=== PATIENT | male | born 1960 | race Caucasian/White ===

== ENCOUNTER 2021-01-31 12:25 | Emergency (ER) | payer BC ==
[~2021-01-31] VITALS: Ht 170.2 cm; Wt 78.0 kg
[~2021-01-31 12:25] MED LIST: ENAL20TA75 PO; FLUT16SP2 BOTHNARES; GABA-532 PO; HYDR-3686 PO; HYDR12.55 PO; LOVA20TA2 PO; METO-411 PO
[2021-01-31] MEDS ORDERED: ondansetron/PF 4mg/2ml inj IV ONE (16:30)
[2021-01-31 17:54] LABS: BASOPHILS % (AUTO) 0.2 % (0-1); EOSINOPHILS # (AUTO) 0.1 X10'3 (0-0.9); EOSINOPHILS % (AUTO) 0.6 % (0-6); HEMATOCRIT 46.1 % (42.0-52.0); HEMOGLOBIN 15.2 g/dl (14.0-17.9); LYMPHOCYTES # (AUTO) 1.4 X10'3 (1.1-4.8); LYMPHOCYTES % (AUTO) 10.6 % (21-51); MEAN CORPUSCULAR HEMOGLOBIN 30.1 PG (27.0-31.0); MEAN CORPUSCULAR HGB CONC 33.1 g/dL (33.0-36.5); MEAN PLATELET VOLUME 8.4 FL (7.4-10.4); MONOCYTES # (AUTO) 1.1 X10'3 (0-0.9); MONOCYTES % (AUTO) 7.9 % (2-12); NEUTROPHILS # (AUTO) 10.9 X10'3 (1.8-7.7); NEUTROPHILS % (AUTO) 80.7 % (42-75); PLATELET COUNT 239 X10'3 (140-440); RED BLOOD COUNT 5.07 X10'6 (4.70-6.10); RED CELL DISTRIBUTION WIDTH 15.8 % (11.5-14.5); WHITE BLOOD COUNT 13.5 X10'3 (4.5-11.0)
[2021-01-31 18:05] LABS: ALBUMIN 4.8 G/DL (3.4-5.0); ANION GAP 12 (8-16); BLOOD UREA NITROGEN 18 MG/DL (7-18); BUN/CREATININE RATIO 17.5 (5.4-32.0); CALCIUM 9.2 MG/DL (8.5-10.1); CHLORIDE 107 MMOL/L (99-107); CREATININE 1.03 MG/DL (0.60-1.10); GLUCOSE 104 MG/DL (70-104); POTASSIUM 3.9 MMOL/L (3.5-5.1); SODIUM 144 MMOL/L (135-145); TOTAL CARBON DIOXIDE 25.2 MMOL/L (24-32); eGFR 74 ML/MIN
[2021-01-31 18:06] LABS: PARTIAL THROMBOPLASTIN TIME 27 SECONDS (22-32)
--- NOTE | 2021-01-31 18:49 | NUR ---
Patient states throat still feels sore but has been able to keep down a few drinks of water. Patient encouraged to call if he starts to throw up again.
[2021-01-31 20:37] VITALS: BP 130/83
== END 2021-01-31 20:38 | disposition home or self-care (01) ==
LOC: ER 12:25
DX: K22.2 Esophageal obstruction (principal); I10 Essential (primary) hypertension; J45.909 Unspecified asthma, uncomplicated; Z86.19 Personal history of other infectious and parasitic diseases; Z79.899 Other long term (current) drug therapy
CPT/HCPCS: 36415; 71045; 80048; 85025; 85610; 85730; 96374; 99284; J2405

== ENCOUNTER 2022-01-18 05:22 | Inpatient (IN) | payer BC ==
[2022-01-16 13:55] LABS: BASOPHILS % (AUTO) 0.7 % (0-1); EOSINOPHILS # (AUTO) 0.2 X10'3 (0-0.9); EOSINOPHILS % (AUTO) 2.8 % (0-6); LYMPHOCYTES # (AUTO) 1.6 X10'3 (1.1-4.8); LYMPHOCYTES % (AUTO) 23.6 % (21-51); MEAN CORPUSCULAR HEMOGLOBIN 29.5 PG (27.0-31.0); MEAN CORPUSCULAR HGB CONC 33.8 g/dL (33.0-36.5); MEAN CORPUSCULAR VOLUME 87.1 FL (78-98); MEAN PLATELET VOLUME 8.3 FL (7.4-10.4); MONOCYTES # (AUTO) 0.5 X10'3 (0-0.9); MONOCYTES % (AUTO) 7.6 % (2-12); NEUTROPHILS # (AUTO) 4.5 X10'3 (1.8-7.7); NEUTROPHILS % (AUTO) 65.3 % (42-75); PRE OP HEMATOCRIT 39.3 % (42.0-52.0); PRE OP HEMOGLOBIN 13.3 g/dL (14.0-17.9); PRE OP PLATELET COUNT 229 X10'3 (140-440); RED BLOOD COUNT 4.51 X10'6 (4.70-6.10)
[2022-01-16 14:00] LABS: HEMOGLOBIN A1C 6.4 % (4.5-6.2)
[2022-01-16 14:04] LABS: PRE OP PROTIME 10.3 SECONDS (9.0-12.0)
[2022-01-16 14:05] LABS: ALBUMIN 4.1 G/DL (3.4-5.0); ALKALINE PHOSPHATASE 79 IU/L (46-116); BLOOD UREA NITROGEN 16 MG/DL (7-18); BUN/CREATININE RATIO 14.7 (5.4-32.0); CALCIUM 8.8 MG/DL (8.5-10.1); CHLORIDE 103 MMOL/L (99-107); CREATININE 1.09 MG/DL (0.60-1.10); PRE OP ALT 53 U/L (30-65); PRE OP ANION GAP 8 (8-16); PRE OP AST 26 U/L (10-37); PRE OP GLUCOSE 101 MG/DL (70-104); PRE OP POTASSIUM 4.1 MMOL/L (3.4-5.1); PRE OP SODIUM 140 MMOL/L (135-145); TOTAL CARBON DIOXIDE 29.3 MMOL/L (24-32); TOTAL PROTEIN 8.2 G/DL (6.4-8.2); eGFR 69 ML/MIN
[2022-01-16 14:06] LABS: CLARITY,URINE CLEAR (Clear); COLOR,URINE YELLOW (Yellow); GLUCOSE, URINE NEGATIVE (Neg); KETONES,URINE NEGATIVE (Neg); LEUKOCYTE ESTERASE ,URINE NEGATIVE (Neg); NITRITES, URINE NEGATIVE (Neg); OCCULT BLOOD,URINE NEGATIVE (Neg); PH,URINE 5.5 (4.8-8.0); PROTEIN,URINE NEGATIVE (Neg); UROBILINOGEN,URINE 0.2 E.U/dL (0.2-1.0)
[2022-01-16 14:10] LABS: PRE OP BILIRUB, TOTAL 0.4 MG/DL (0.0-1.0)
[2022-01-16 14:17] LABS: UA COLLECTION TYPE VOIDED
[2022-01-16 15:07] LABS: ABG BASE EXCESS 0.5 mmol/L (-2.0-2.0); ABG HCO3 25.6 mmol/L (22.0-26.0); ABG OXYGEN SATURATION 96.2 % (94-97); ABG PCO2 (T) 42.9 mmHg (35.0-48.0); ABG PO2 (T) 82.4 mmHg (75.0-100.0); ALLEN'S TEST POSITIVE; FCOHb 0.3 % (0.0-3.9); FMetHb 0.3 % (0.0-1.5); FO2Hb 95.6 % (94-97); TOTAL HEMOGLOBIN 13.7 G/dl (14.0-18.0)
[~2022-01-18] VITALS: Ht 165.1 cm; Wt 74.1 kg
[2022-01-18] VITALS (23 sets, daily range): BP systolic 91–138; BP diastolic 43–73
[~2022-01-18 05:22] MED LIST changes: +ALLO300T8 PO; +AMLO5TAB16 PO; +ATOR-2 PO; +BENA40TA72 PO; -ENAL20TA75 PO; +ESCI10TA PO; -FLUT16SP2 BOTHNARES; -HYDR-3686 PO; -HYDR12.55 PO; +SPIR25TA5 PO; +ringers solution, lacted 1,000 ML IV SCH
[2022-01-18] MEDS ORDERED: Insulin Reg/NS 100units/100mL 100 ML IV SCH ×2 (05:30→10:55)
[2022-01-18] MEDS ORDERED: vancomycin 1,500 MG in NS 300ml IV soln IV ONE (05:30)
[2022-01-18] MEDS ORDERED: famotidine 20mg tablet PO ONE (05:30)
[2022-01-18] MEDS ORDERED: gabapentin 300mg capsule PO ONE ×2 (05:30→06:05)
[2022-01-18] MEDS ORDERED: DOCUMENT DATE & TIME OF BETA-BLOCKER PO ONE (05:30)
[2022-01-18] MEDS ORDERED: ceFAZolin inj. 2,000 MG in dextrose 5%-water 100 ML IV ONE (05:30)
[2022-01-18] MEDS ORDERED: epiNEPHrine 1 mg/ml inj ONE ×2 (05:42→09:37)
[2022-01-18] MEDS ORDERED: ceFAZolin 1000mg inj ONE (05:42)
[2022-01-18] MEDS ORDERED: LORazepam 2 mg/ml vial IV PRN ×2 (06:00→06:05)
[2022-01-18] MEDS: mupirocin 2% nasal ointment 1gm UD NS SCH ×3 (07:04→20:18)
[2022-01-18] MEDS ORDERED: SUFENTANIL CITRATE 50 MCG/ML 2ml ampule IV ONE (07:15)
[2022-01-18] MEDS ORDERED: midazolam 1 mg/ML 2ml injection ONE (07:15)
[2022-01-18] MEDS ORDERED: nitroGLYCERIN in D5W 50mg/250ml (Tridil) infusion IV ONE (07:21)
[2022-01-18] MEDS ORDERED: protamine sulf. 10mg/ml inj. IV ONE (07:21)
[2022-01-18] MEDS ORDERED: isoflurane 100ml inhalation liquid IH ONE (07:21)
[2022-01-18] MEDS ORDERED: NORepinephrine 8 MG in NS 250 ML BAG (32 mcg/ml) IV ONE (07:21)
[2022-01-18] MEDS ORDERED: DOPamine/D5W 400mg/250ml bag IV ONE (07:21)
[2022-01-18] MEDS ORDERED: heparin 10,000 units/1 ML INJ ONE (08:00)
[2022-01-18] MEDS ORDERED: aminocaproic acid 250 MG/1 ML inj. ONE (08:00)
[2022-01-18] MEDS ORDERED: methylPREDNISolone sod succ 1000mg vial ONE (08:00)
[2022-01-18] MEDS ORDERED: LIDOcaine 2% (20 mg/ml) 5ml cardiac syringe ONE (08:00)
[2022-01-18] MEDS ORDERED: sodium bicarbonate (8.4%) 1 mEq/ml syringe ONE (08:00)
[2022-01-18] MEDS ORDERED: calcium chloride 100 MG/1 ML inj IV ONE ×2 (08:00→15:53)
[2022-01-18] MEDS ORDERED: albumin (human) 25% 100 ML IV solution IV ONE (08:00)
[2022-01-18] MEDS ORDERED: potassium Cl 2 mEq/ml inj IV ONE (08:00)
[2022-01-18] MEDS ORDERED: phenylephrine 10mg/ml inj. ONE ×2 (08:00→09:37)
[2022-01-18 08:09] LABS: ABG BASE EXCESS 0.6 mmol/L (-2.0-2.0); ABG HCO3 25.4 mmol/L (22.0-26.0); ABG OXYGEN SATURATION 99.9 % (94-97); ABG PCO2 41.8 mmHg (35.0-48.0); ABG PO2 495.8 mmHg (75.0-100.0); CL (ABG) 106 mmol/L (98-110); FCOHb 0.2 % (0.0-3.9); FMetHb 0.3 % (0.0-1.5); FO2Hb 99.4 % (94-97); GLUCOSE (ABG) 104 mg/dl (70-105); IONIZED CA (ABG) 1.14 mmol/L (1.10-1.43)
[2022-01-18 08:57] LABS: ABG BASE EXCESS VENOUS -1.5 mmol/L (-2.0 - 2.0); ABG HCO3 VENOUS 23.9 mmol/L (21.0-28.0); ABG PCO2 VENOUS 43.6 mmHg (41.0-54.0); ABG PO2 VENOUS 54.5 mmHg (25.0-35.0); CL (ABG) 102 mmol/L (98-110); FCOHb VENOUS 0.7 %; FHHb VENOUS 12.3 %; FMetHb VENOUS 0.3 % (0.0 - 0.5); FO2Hb VENOUS 86.7 %; GLUCOSE (ABG) 116 mg/dl (70-105); IONIZED CA (ABG) 1.05 mmol/L (1.10-1.43); K (ABG) 4.7 mmol/L (3.5-5.0); TOTAL HEMOGLOBIN 8.8 G/dl (14.0-18.0)
[2022-01-18 09:04] LABS: ABG BASE EXCESS -0.2 mmol/L (-2.0-2.0); ABG HCO3 26.2 mmol/L (22.0-26.0); ABG OXYGEN SATURATION 99.7 % (94-97); ABG PCO2 51.6 mmHg (35.0-48.0); ABG PO2 465.2 mmHg (75.0-100.0); CL (ABG) 103 mmol/L (98-110); FCOHb 0.3 % (0.0-3.9); FMetHb 0.3 % (0.0-1.5); FO2Hb 99.1 % (94-97); GLUCOSE (ABG) 125 mg/dl (70-105); IONIZED CA (ABG) 1.05 mmol/L (1.10-1.43); K (ABG) 4.8 mmol/L (3.5-5.0); TOTAL HEMOGLOBIN 9.1 G/dl (14.0-18.0)
[2022-01-18] MEDS ORDERED: ipratropium/albuterol 3ml nebule IH PRN (09:15)
[2022-01-18 09:30] LABS: ABG BASE EXCESS -1.5 mmol/L (-2.0-2.0); ABG HCO3 23.1 mmol/L (22.0-26.0); ABG OXYGEN SATURATION 99.6 % (94-97); ABG PCO2 38.3 mmHg (35.0-48.0); ABG PO2 376.1 mmHg (75.0-100.0); CL (ABG) 103 mmol/L (98-110); FCOHb 0.3 % (0.0-3.9); FMetHb 0.3 % (0.0-1.5); GLUCOSE (ABG) 141 mg/dl (70-105); IONIZED CA (ABG) 1.07 mmol/L (1.10-1.43); K (ABG) 5.1 mmol/L (3.5-5.0); TOTAL HEMOGLOBIN 9.7 G/dl (14.0-18.0)
[2022-01-18] MEDS ORDERED: rocuronium 10mg/ml inj IV ONE (09:37)
[2022-01-18] MEDS ORDERED: etomidate 2mg/ml inj. ONE (09:37)
[2022-01-18] MEDS ORDERED: LIDOcaine 2% (20mg/ml) 5ml vial ONE (09:37)
[2022-01-18 10:16] LABS: ABG BASE EXCESS VENOUS -0.3 mmol/L (-2.0 - 2.0); ABG PCO2 VENOUS 43.6 mmHg (41.0-54.0); ABG PO2 VENOUS 52.6 mmHg (25.0-35.0); CL (ABG) 105 mmol/L (98-110); FCOHb VENOUS 0.4 %; FHHb VENOUS 13.9 %; FMetHb VENOUS 0.3 % (0.0 - 0.5); FO2Hb VENOUS 85.4 %; GLUCOSE (ABG) 142 mg/dl (70-105); IONIZED CA (ABG) 1.19 mmol/L (1.10-1.43); K (ABG) 4.7 mmol/L (3.5-5.0); TOTAL HEMOGLOBIN 8.4 G/dl (14.0-18.0)
[2022-01-18 10:19] LABS: ACTIVATED CLOTTING TIME 122 SEC (101-148)
[2022-01-18 10:25] LABS: ACT @ 1.70 U 304 SEC (193-297); ACT @ 2.84 U 422 SEC (260-420); BASELINE ACT 148 SEC (101-148); PATIENT WEIGHT 77.0k KG
[2022-01-18] MEDS ORDERED: magnesium 4gm in 100ml NS 100 ML IV PRN (10:55)
[2022-01-18] MEDS ORDERED: mineral oil 133ml enema RC PRN (10:55)
[2022-01-18] MEDS ORDERED: ondansetron/PF 4mg/2ml inj IV PRN (10:55)
[2022-01-18] MEDS ORDERED: potassium CL 10mEq/100ml bag 100 ML IV PRN (10:55)
[2022-01-18] MEDS ORDERED: niCARDipine-NS 40mg/200ml IVPB 200 ML IV PRN ×2 (10:55→14:51)
[2022-01-18] MEDS ORDERED: acetaminophen 325mg tablet PO PRN (10:55)
[2022-01-18] MEDS ORDERED: normal saline 250ml IV soln 250 ML IV PRN (10:55)
[2022-01-18] MEDS ORDERED: DOPamine 400mg/D5W 250ml 250 ML IV PRN (10:55)
[2022-01-18] MEDS ORDERED: dextrose 50%-water 50ml dispensing syringe IV PRN (10:55)
[2022-01-18] MEDS ORDERED: bisacodyl 10mg suppository rectal RC PRN (10:55)
[2022-01-18] MEDS ORDERED: magnesium hydroxide 30ml (MOM) UD suspension PO PRN (10:55)
[2022-01-18] MEDS ORDERED: sodium phosphate inj. 15 MMOL in dextrose 5%-water 250 ML IV PRN (10:55)
[2022-01-18] MEDS ORDERED: metoclopramide 5 mg/ml inj IV PRN (10:55)
[2022-01-18] MEDS ORDERED: sodium phosphate inj. 30 MMOL in dextrose 5%-water 250 ML IV PRN (10:55)
[2022-01-18] MEDS ORDERED: sodium chloride 0.45% 1,000 ML IV SCH (10:55)
[2022-01-18] MEDS ORDERED: HYDROcodone/acetaminophen 10/325mg tab PO PRN (10:55)
[2022-01-18] MEDS ORDERED: nitroGLYCERIN-Tridil 50MG/D5W 250 ML IV PRN (10:55)
[2022-01-18] MEDS ORDERED: magnesium citrate 296ml oral solution PO PRN (10:55)
[2022-01-18] MEDS ORDERED: morphine 2 MG/ML inj. syringe IV PRN (10:55)
[2022-01-18] MEDS ORDERED: insulin glargine (Lantus) pen - multi-dose SQ PRN (10:55)
[2022-01-18] MEDS ORDERED: acetaminophen 1,000mg/100ml IV 100 ML IV ONE (11:20)
[2022-01-18 11:24] LABS: ABG BASE EXCESS -1.3 mmol/L (-2.0-2.0); ABG HCO3 23.8 mmol/L (22.0-26.0); ABG OXYGEN SATURATION 98.4 % (94-97); ABG PCO2 (T) 38.2 mmHg (35.0-48.0); ABG PO2 (T) 134.4 mmHg (75.0-100.0); FCOHb 0.3 % (0.0-3.9); FMetHb 0.5 % (0.0-1.5); FO2Hb 97.6 % (94-97); PATIENT TEMPERATURE 35.4; PEEP 5 cm H2O; RESPIRATORY RATE 12 b/min; TIDAL VOLUME 550 mL; TOTAL HEMOGLOBIN 12.9 G/dl (14.0-18.0)
[2022-01-18] MEDS ORDERED: albumin (Human) 5% 250ml 250 ML IV ONE ×4 (11:33→20:35)
[2022-01-18 11:36] LABS: BASOPHILS % (AUTO) 0.3 % (0-1); EOSINOPHILS # (AUTO) 0.1 X10'3 (0-0.9); EOSINOPHILS % (AUTO) 0.8 % (0-6); HEMATOCRIT 35.5 % (42.0-52.0); HEMOGLOBIN 11.8 g/dl (14.0-17.9); LYMPHOCYTES # (AUTO) 1.4 X10'3 (1.1-4.8); LYMPHOCYTES % (AUTO) 10.7 % (21-51); MEAN CORPUSCULAR HEMOGLOBIN 29.2 PG (27.0-31.0); MEAN CORPUSCULAR HGB CONC 33.3 g/dL (33.0-36.5); MEAN CORPUSCULAR VOLUME 87.6 FL (78-98); MEAN PLATELET VOLUME 8.2 FL (7.4-10.4); MONOCYTES # (AUTO) 0.6 X10'3 (0-0.9); NEUTROPHILS # (AUTO) 10.7 X10'3 (1.8-7.7); NEUTROPHILS % (AUTO) 83.2 % (42-75); PLATELET COUNT 117 X10'3 (140-440); RED BLOOD COUNT 4.05 X10'6 (4.70-6.10); RED CELL DISTRIBUTION WIDTH 15.1 % (11.5-14.5); WHITE BLOOD COUNT 12.8 X10'3 (4.5-11.0)
[2022-01-18 11:44] LABS: APTT 30 SECONDS (22-32)
[2022-01-18 11:46] LABS: ALANINE AMINOTRANSFERASE 32 U/L (12-78); ALBUMIN 2.4 G/DL (3.4-5.0); ALBUMIN/GLOBULIN RATIO 1.1 (1.1-1.5); ALKALINE PHOSPHATASE 43 IU/L (46-116); ANION GAP 5 (8-16); ASPARTATE AMINO TRANSFERASE 34 U/L (10-37); BILIRUBIN,TOTAL 0.7 MG/DL (0.1-1.0); BLOOD UREA NITROGEN 15 MG/DL (7-18); BUN/CREATININE RATIO 13.5 (5.4-32.0); CALCIUM 7.5 MG/DL (8.5-10.1); CHLORIDE 109 MMOL/L (99-107); CREATININE 1.11 MG/DL (0.60-1.10); GLUCOSE 194 MG/DL (70-104); MAGNESIUM 2.1 MG/DL (1.5-2.4); PHOSPHORUS 1.4 MG/DL (2.3-4.5); POTASSIUM 4.2 MMOL/L (3.5-5.1); SODIUM 141 MMOL/L (135-145); TOTAL CARBON DIOXIDE 26.8 MMOL/L (24-32); TOTAL PROTEIN 4.6 G/DL (6.4-8.2); eGFR 67 ML/MIN
[2022-01-18] MEDS ORDERED: potassium Cl 20mEq/100mL bag 200 ML IV ONE (12:26)
[2022-01-18] MEDS: potassium Cl 20mEq/100mL bag 100 ML IV PRN ×4 (12:31→23:00)
[2022-01-18] MEDS: albumin (Human) 5% 250ml 250 ML IV PRN ×3 (12:47→14:44)
[2022-01-18] MEDS: gabapentin 300mg capsule PO SCH ×2 (13:10→21:00)
[2022-01-18] MEDS: magnesium 2GM in 50ml NS 50 ML IV PRN (13:11)
--- NOTE | 2022-01-18 14:15 | NUR ---
Patient in room CICU 2012. I have received report from Mandi Souza RN and had the opportunity to ask questions and assume patient care. Pt arrived from OR with Levo infusing at 0.5 mcg/kg/min.
[2022-01-18] MEDS: morphine 4 MG/ML inj SYRINge IV PRN ×3 (14:22→22:01)
[2022-01-18] MEDS ORDERED: NORepinephrine 8mg/ 250ml NS 250 ML IV PRN (14:50)
--- NOTE | 2022-01-18 14:51 | NUR ---
Received to room , accompanied by MDs and surgical crew. Placed on ventilator, to teletypesetter monitor, arterial line and PA line pressure zeroed & monitored. Chest tubes to suction at 20 cm. Bojorquez cath to gravity drainage. Dressings are dry and intact. See assessment record. All vasoactive drugs are infusing via central line.
[2022-01-18] MEDS ORDERED: calcium chloride inj. 1,000 MG in normal saline 100ml IV soln 100 ML IV ONE (15:30)
[2022-01-18] MEDS: ceFAZolin/D5W- 1GM premix 50 ML IV SCH (16:22)
[2022-01-18] MEDS ORDERED: calcium chloride inj. 1,000 MG in normal saline 100ml IV soln 90 ML IV ONE (16:35)
[2022-01-18 17:30] LABS: BASOPHILS % (AUTO) 0.1 % (0-1); EOSINOPHILS % (AUTO) 0 % (0-6); HEMATOCRIT 27.4 % (42.0-52.0); HEMOGLOBIN 9.4 g/dl (14.0-17.9); LYMPHOCYTES # (AUTO) 0.7 X10'3 (1.1-4.8); LYMPHOCYTES % (AUTO) 5.7 % (21-51); MEAN CORPUSCULAR HEMOGLOBIN 29.6 PG (27.0-31.0); MEAN CORPUSCULAR HGB CONC 34.1 g/dL (33.0-36.5); MEAN CORPUSCULAR VOLUME 86.8 FL (78-98); MONOCYTES # (AUTO) 0.4 X10'3 (0-0.9); MONOCYTES % (AUTO) 3.5 % (2-12); NEUTROPHILS # (AUTO) 11.3 X10'3 (1.8-7.7); NEUTROPHILS % (AUTO) 90.7 % (42-75); PLATELET COUNT 92 X10'3 (140-440); RED BLOOD COUNT 3.16 X10'6 (4.70-6.10); RED CELL DISTRIBUTION WIDTH 15.2 % (11.5-14.5); WHITE BLOOD COUNT 12.4 X10'3 (4.5-11.0)
[2022-01-18 17:40] LABS: ALBUMIN 3.7 G/DL (3.4-5.0); ANION GAP 8 (8-16); BLOOD UREA NITROGEN 15 MG/DL (7-18); CALCIUM 8.3 MG/DL (8.5-10.1); CHLORIDE 112 MMOL/L (99-107); CREATININE 1.15 MG/DL (0.60-1.10); GLUCOSE 132 MG/DL (70-104); MAGNESIUM 2.3 MG/DL (1.5-2.4); PHOSPHORUS 1.8 MG/DL (2.3-4.5); POTASSIUM 3.9 MMOL/L (3.5-5.1); SODIUM 145 MMOL/L (135-145); TOTAL CARBON DIOXIDE 25.2 MMOL/L (24-32); eGFR 65 ML/MIN
--- NOTE | 2022-01-18 18:21 | NUR ---
Problems reprioritized. Patient report given, questions answered & plan of care reviewed with Valentina LOAIZA.
--- NOTE | 2022-01-18 18:30 | NUR ---
Patient in room CICU 2013. I have received report from JOSSE Zheng and had the opportunity to ask questions and assume patient care.
[2022-01-18] MEDS: sennosides/docusate sodium tablet PO SCH (20:00)
[2022-01-18] MEDS: vancomycin/NS 1 GM ADD-VANTAGE 250 ML IV SCH (20:18)
[2022-01-18] MEDS: atorvastatin 10mg tablet PO SCH (21:00)
--- NOTE | 2022-01-18 22:37 | NUR ---
Patient only breathing 5-8 breaths per minute on spontaneous, placed back on rate. Will try a rate of 10 and see patient will start over breathing vent and then will retry SBT.
[2022-01-19] VITALS (24 sets, daily range): BP systolic 93–125; BP diastolic 51–72
[2022-01-19] MEDS: ceFAZolin/D5W- 1GM premix 50 ML IV SCH ×3 (00:11→16:05)
--- NOTE | 2022-01-19 00:25 | NUR ---
SBT tried again, patient breathing 6 breaths per minute, will place back on rate and retry again later.
[2022-01-19 01:30] LABS: ABG BASE EXCESS -4.3 mmol/L (-2.0-2.0); ABG HCO3 21.2 mmol/L (22.0-26.0); ABG OXYGEN SATURATION 96.5 % (94-97); ABG PCO2 (T) 41.3 mmHg (35.0-48.0); FCOHb 0.2 % (0.0-3.9); FMetHb 0.7 % (0.0-1.5); FO2Hb 95.6 % (94-97); PATIENT TEMPERATURE 37.4; PEEP 5 cm H2O; TOTAL HEMOGLOBIN 9.5 G/dl (14.0-18.0)
--- NOTE | 2022-01-19 01:41 | NUR ---
Pt successfully met weaning parameters after being on spontaneous for approximately 30 minutes. ABG was acceptable. Patient extubated at 0135 and placed on 5 L nasal cannula, sating 96% at this time.
[2022-01-19 02:39] LABS: BASOPHILS % (AUTO) 0.1 % (0-1); EOSINOPHILS % (AUTO) 0 % (0-6); HEMATOCRIT 25.4 % (42.0-52.0); HEMOGLOBIN 8.5 g/dl (14.0-17.9); LYMPHOCYTES # (AUTO) 0.7 X10'3 (1.1-4.8); LYMPHOCYTES % (AUTO) 5.5 % (21-51); MEAN CORPUSCULAR HEMOGLOBIN 29.6 PG (27.0-31.0); MEAN CORPUSCULAR HGB CONC 33.7 g/dL (33.0-36.5); MEAN CORPUSCULAR VOLUME 87.7 FL (78-98); MEAN PLATELET VOLUME 8.4 FL (7.4-10.4); MONOCYTES # (AUTO) 0.5 X10'3 (0-0.9); MONOCYTES % (AUTO) 4.5 % (2-12); NEUTROPHILS # (AUTO) 10.8 X10'3 (1.8-7.7); NEUTROPHILS % (AUTO) 89.9 % (42-75); PLATELET COUNT 78 X10'3 (140-440); RED BLOOD COUNT 2.89 X10'6 (4.70-6.10); RED CELL DISTRIBUTION WIDTH 15.4 % (11.5-14.5)
[2022-01-19 02:41] LABS: APTT 25 SECONDS (22-32)
[2022-01-19 02:45] LABS: ALANINE AMINOTRANSFERASE 29 U/L (12-78); ALBUMIN 3.8 G/DL (3.4-5.0); ALKALINE PHOSPHATASE 28 IU/L (46-116); ANION GAP 7 (8-16); ASPARTATE AMINO TRANSFERASE 31 U/L (10-37); BILIRUBIN,TOTAL 0.7 MG/DL (0.1-1.0); BLOOD UREA NITROGEN 18 MG/DL (7-18); BUN/CREATININE RATIO 14.9 (5.4-32.0); CALCIUM 7.9 MG/DL (8.5-10.1); CHLORIDE 111 MMOL/L (99-107); CREATININE 1.21 MG/DL (0.60-1.10); GLUCOSE 136 MG/DL (70-104); MAGNESIUM 1.9 MG/DL (1.5-2.4); POTASSIUM 4.6 MMOL/L (3.5-5.1); SODIUM 143 MMOL/L (135-145); TOTAL CARBON DIOXIDE 25.4 MMOL/L (24-32); TOTAL PROTEIN 5.7 G/DL (6.4-8.2); eGFR 61 ML/MIN
[2022-01-19] MEDS: morphine 4 MG/ML inj SYRINge IV PRN (04:08)
--- NOTE | 2022-01-19 06:21 | NUR ---
Problems reprioritized. Patient report given, questions answered & plan of care reviewed with JOSSE Plunkett.
[2022-01-19] MEDS: metoprolol tartrate 12.5mg (1/2 tablet) PO SCH ×2 (08:48→21:15)
[2022-01-19] MEDS: vancomycin/NS 1 GM ADD-VANTAGE 250 ML IV SCH ×2 (08:48→21:13)
[2022-01-19] MEDS: aspirin 81mg tab.chew PO SCH (08:48)
[2022-01-19] MEDS: sennosides/docusate sodium tablet PO SCH ×2 (08:48→21:15)
[2022-01-19] MEDS: ESCITALOPRAM OXALATE 5 MG TABLET PO SCH (08:48)
[2022-01-19] MEDS: gabapentin 300mg capsule PO SCH ×3 (08:49→21:14)
[2022-01-19] MEDS: mupirocin 2% nasal ointment 1gm UD NS SCH ×2 (08:50→21:14)
[2022-01-19] MEDS: allopurinol 300 MG tablet PO SCH (08:50)
--- NOTE | 2022-01-19 12:23 | NUR ---
Nutrition Consult: Pt post-op day 1 s/p aortic root replacement per EMR. P would benefit from written/verbal high protein diet ed once appropriate post-op prior to discharge. Addendum: 01/19/22 at [address] Amended: Links added.
[2022-01-19] MEDS ORDERED: dextrose 50%-water 50ml dispensing syringe IV PRN ×2 (13:10)
[2022-01-19] MEDS ORDERED: insulin Lispro (HumaLOG) vial - multi-dose SQ SCH (13:10)
--- NOTE | 2022-01-19 18:30 | NUR ---
Patient in room CICU 2013. I have received report from Dimitrios LOAIZA and had the opportunity to ask questions and assume patient care.
--- NOTE | 2022-01-19 21:00 | NUR ---
Problems reprioritized. Patient report given, questions answered & plan of care reviewed with Marjan RN.
[2022-01-19] MEDS: atorvastatin 10mg tablet PO SCH (21:15)
[2022-01-19] MEDS: Neutra Phos packet PO PRN (21:15)
[2022-01-20] VITALS (23 sets, daily range): BP systolic 92–125; BP diastolic 41–75
[2022-01-20] MEDS: ceFAZolin/D5W- 1GM premix 50 ML IV SCH (00:27)
[2022-01-20 02:07] LABS: BASOPHILS % (AUTO) 0 % (0-1); EOSINOPHILS % (AUTO) 0 % (0-6); HEMATOCRIT 22.9 % (42.0-52.0); HEMOGLOBIN 7.6 g/dl (14.0-17.9); LYMPHOCYTES # (AUTO) 0.8 X10'3 (1.1-4.8); LYMPHOCYTES % (AUTO) 5.1 % (21-51); MEAN CORPUSCULAR HEMOGLOBIN 29.2 PG (27.0-31.0); MEAN CORPUSCULAR HGB CONC 32.9 g/dL (33.0-36.5); MEAN CORPUSCULAR VOLUME 88.7 FL (78-98); MEAN PLATELET VOLUME 8.9 FL (7.4-10.4); MONOCYTES # (AUTO) 1.3 X10'3 (0-0.9); MONOCYTES % (AUTO) 7.9 % (2-12); PLATELET COUNT 71 X10'3 (140-440); RED BLOOD COUNT 2.59 X10'6 (4.70-6.10); RED CELL DISTRIBUTION WIDTH 15.9 % (11.5-14.5)
[2022-01-20 02:15] LABS: ALBUMIN 3.4 G/DL (3.4-5.0); ANION GAP 6 (8-16); BLOOD UREA NITROGEN 22 MG/DL (7-18); BUN/CREATININE RATIO 22.9 (5.4-32.0); CALCIUM 7.6 MG/DL (8.5-10.1); CHLORIDE 105 MMOL/L (99-107); CREATININE 0.96 MG/DL (0.60-1.10); GLUCOSE 157 MG/DL (70-104); MAGNESIUM 2.3 MG/DL (1.5-2.4); PHOSPHORUS 2.5 MG/DL (2.3-4.5); POTASSIUM 4.5 MMOL/L (3.5-5.1); SODIUM 137 MMOL/L (135-145); TOTAL CARBON DIOXIDE 26.2 MMOL/L (24-32); eGFR 80 ML/MIN
[2022-01-20] MEDS: HYDROcodone/acetaminophen 10/325mg tab PO PRN (04:39)
[2022-01-20] MEDS: magnesium 2GM in 50ml NS 50 ML IV PRN (04:48)
[2022-01-20] MEDS: metoprolol tartrate 12.5mg (1/2 tablet) PO SCH ×2 (09:28→18:56)
[2022-01-20] MEDS: mupirocin 2% nasal ointment 1gm UD NS SCH (09:29)
[2022-01-20] MEDS: ESCITALOPRAM OXALATE 5 MG TABLET PO SCH (09:29)
[2022-01-20] MEDS: aspirin 81mg tab.chew PO SCH (09:30)
[2022-01-20] MEDS: furosemide 40mg/4ml inj IV SCH (09:30)
[2022-01-20] MEDS: gabapentin 300mg capsule PO SCH (09:30)
[2022-01-20] MEDS: sennosides/docusate sodium tablet PO SCH ×2 (09:31→18:55)
[2022-01-20] MEDS: allopurinol 300 MG tablet PO SCH (09:31)
[2022-01-20] MEDS: pantoprazole 40mg Tablet.DR PO SCH (09:34)
--- NOTE | 2022-01-20 20:00 | NUR ---
Patient in room PCU 3022. I have received report from JOSSE Murdock and had the opportunity to ask questions and assume patient care.
[2022-01-20] MEDS: atorvastatin 10mg tablet PO SCH (20:55)
--- NOTE | 2022-01-20 21:24 | NUR ---
2123 Dr. Adam at bedside. Chest tubes x 2 and pacer wires discontinued by . Dressing appplied and reinforced with 4x4s, secured with silk tape. 2123: Report called to receiving nurse by primary RN Collette. Transferred via wheelchair on devops developer.
--- NOTE | 2022-01-20 21:25 | NUR ---
pt arrived via wheelchair, ambulated to the bed. Independent to restroom.
[2022-01-20] MEDS: acetaminophen 325mg tablet PO PRN (23:28)
[2022-01-21 02:00] VITALS: BP 106/58
[2022-01-21 06:00] VITALS: BP 123/67
--- NOTE | 2022-01-21 06:11 | NUR ---
Problems reprioritized. Patient report given, questions answered & plan of care reviewed with JOSSE Simental.
[2022-01-21] MEDS: sennosides/docusate sodium tablet PO SCH ×2 (08:00→21:51)
[2022-01-21 08:07] LABS: BASOPHILS % (AUTO) 0 % (0-1); EOSINOPHILS % (AUTO) 0 % (0-6); HEMATOCRIT 22.3 % (42.0-52.0); HEMOGLOBIN 7.3 g/dl (14.0-17.9); LYMPHOCYTES # (AUTO) 1.2 X10'3 (1.1-4.8); LYMPHOCYTES % (AUTO) 7.4 % (21-51); MEAN CORPUSCULAR HEMOGLOBIN 29.4 PG (27.0-31.0); MEAN PLATELET VOLUME 9.4 FL (7.4-10.4); MONOCYTES # (AUTO) 1.8 X10'3 (0-0.9); MONOCYTES % (AUTO) 11.1 % (2-12); NEUTROPHILS # (AUTO) 13.1 X10'3 (1.8-7.7); NEUTROPHILS % (AUTO) 81.5 % (42-75); PLATELET COUNT 80 X10'3 (140-440); WHITE BLOOD COUNT 16.1 X10'3 (4.5-11.0)
[2022-01-21] MEDS: furosemide 40mg/4ml inj IV SCH (08:19)
[2022-01-21] MEDS: metoprolol tartrate 12.5mg (1/2 tablet) PO SCH ×2 (08:20→21:51)
[2022-01-21] MEDS: aspirin 81mg tab.chew PO SCH (08:20)
[2022-01-21] MEDS: pantoprazole 40mg Tablet.DR PO SCH (08:20)
[2022-01-21] MEDS: allopurinol 300 MG tablet PO SCH (08:21)
[2022-01-21] MEDS: HYDROcodone/acetaminophen 10/325mg tab PO PRN (08:21)
[2022-01-21] MEDS: ESCITALOPRAM OXALATE 5 MG TABLET PO SCH (08:22)
[2022-01-21 08:33] LABS: ALBUMIN 3.2 G/DL (3.4-5.0); ANION GAP 7 (8-16); BLOOD UREA NITROGEN 23 MG/DL (7-18); BUN/CREATININE RATIO 25.8 (5.4-32.0); CALCIUM 7.7 MG/DL (8.5-10.1); CHLORIDE 102 MMOL/L (99-107); CREATININE 0.89 MG/DL (0.60-1.10); GLUCOSE 120 MG/DL (70-104); MAGNESIUM 2.3 MG/DL (1.5-2.4); PHOSPHORUS 1.7 MG/DL (2.3-4.5); POTASSIUM 4.1 MMOL/L (3.5-5.1); SODIUM 138 MMOL/L (135-145); TOTAL CARBON DIOXIDE 28.7 MMOL/L (24-32); eGFR 87 ML/MIN
[2022-01-21 11:00] VITALS: BP 102/58
[2022-01-21] MEDS: Neutra Phos packet PO PRN ×2 (11:08→21:52)
[2022-01-21 18:00] VITALS: BP 126/77
--- NOTE | 2022-01-21 18:52 | NUR ---
Problems reprioritized. Patient report given, questions answered & plan of care reviewed with
--- NOTE | 2022-01-21 19:06 | NUR ---
Patient in room PCU 3022. I have received report from JOSSE Simental and had the opportunity to ask questions and assume patient care.
[2022-01-21] MEDS: atorvastatin 10mg tablet PO SCH (21:51)
[2022-01-21] MEDS: acetaminophen 325mg tablet PO PRN (21:52)
[2022-01-21 22:00] VITALS: BP 107/68
[2022-01-22 02:00] VITALS: BP 153/66
[2022-01-22 06:43] LABS: ALBUMIN 2.9 G/DL (3.4-5.0); ANION GAP 9 (8-16); BLOOD UREA NITROGEN 20 MG/DL (7-18); BUN/CREATININE RATIO 24.4 (5.4-32.0); CALCIUM 7.8 MG/DL (8.5-10.1); CHLORIDE 101 MMOL/L (99-107); CREATININE 0.82 MG/DL (0.60-1.10); GLUCOSE 118 MG/DL (70-104); MAGNESIUM 2.4 MG/DL (1.5-2.4); PHOSPHORUS 2.7 MG/DL (2.3-4.5); POTASSIUM 4.2 MMOL/L (3.5-5.1); SODIUM 140 MMOL/L (135-145); TOTAL CARBON DIOXIDE 30.5 MMOL/L (24-32); eGFR > 90 ML/MIN
[2022-01-22 06:47] LABS: BASOPHILS % (AUTO) 0 % (0-1); EOSINOPHILS % (AUTO) 0.2 % (0-6); LYMPHOCYTES % (AUTO) 7.9 % (21-51); MEAN CORPUSCULAR HEMOGLOBIN 29.8 PG (27.0-31.0); MEAN CORPUSCULAR HGB CONC 33.5 g/dL (33.0-36.5); MEAN PLATELET VOLUME 8.9 FL (7.4-10.4); MONOCYTES # (AUTO) 1.6 X10'3 (0-0.9); MONOCYTES % (AUTO) 11.8 % (2-12); NEUTROPHILS # (AUTO) 10.6 X10'3 (1.8-7.7); NEUTROPHILS % (AUTO) 80.1 % (42-75); PLATELET COUNT 103 X10'3 (140-440); RED BLOOD COUNT 2.33 X10'6 (4.70-6.10); RED CELL DISTRIBUTION WIDTH 15.5 % (11.5-14.5); WHITE BLOOD COUNT 13.2 X10'3 (4.5-11.0)
--- NOTE | 2022-01-22 06:48 | NUR ---
Patient in room PCU 3022. I have received report from Angella LOAIZA and had the opportunity to ask questions and assume patient care.
--- NOTE | 2022-01-22 06:54 | NUR ---
Problems reprioritized. Patient report given, questions answered & plan of care reviewed with JOSSE Sandoval.
[2022-01-22 07:00] VITALS: BP 137/64
[2022-01-22 07:36] LABS: HEMATOCRIT 20.7 % (42.0-52.0); HEMOGLOBIN 6.9 g/dl (14.0-17.9)
[2022-01-22] MEDS: pantoprazole 40mg Tablet.DR PO SCH (10:05)
[2022-01-22] MEDS: sennosides/docusate sodium tablet PO SCH ×2 (10:05→20:01)
[2022-01-22] MEDS: furosemide 40mg/4ml inj IV SCH (10:05)
[2022-01-22] MEDS: allopurinol 300 MG tablet PO SCH (10:06)
[2022-01-22] MEDS: aspirin 81mg tab.chew PO SCH (10:06)
[2022-01-22] MEDS: metoprolol tartrate 12.5mg (1/2 tablet) PO SCH ×2 (10:06→20:01)
[2022-01-22] MEDS: ESCITALOPRAM OXALATE 5 MG TABLET PO SCH (10:06)
[2022-01-22 11:00] VITALS: BP 133/76
[2022-01-22] MEDS: ketorolac trometh. 30mg/ml inj. IV PRN (13:35)
[2022-01-22 15:00] VITALS: BP 110/67
[2022-01-22 18:00] VITALS: BP 122/70
--- NOTE | 2022-01-22 18:19 | NUR ---
Problems reprioritized. Patient report given, questions answered & plan of care reviewed with Radha LOAIZA. PEr Dr. Adam monitor CBC no replacement PRBC for HGB of 6.9
[2022-01-22] MEDS: atorvastatin 10mg tablet PO SCH (20:01)
[2022-01-22 22:00] VITALS: BP 132/77
[2022-01-23] MEDS: ketorolac trometh. 30mg/ml inj. IV PRN ×3 (01:35→16:48)
--- NOTE | 2022-01-23 01:48 | NUR ---
pt medicated for c/o pain 5-12/02 with toradol.
--- NOTE | 2022-01-23 01:49 | NUR ---
postop teaching done with pt and tolerated well.
[2022-01-23 02:00] VITALS: BP 144/69
--- NOTE | 2022-01-23 03:10 | NUR ---
pt resting eyes closed without changes.
[2022-01-23 06:00] VITALS: BP 138/70
[2022-01-23 06:31] LABS: MAGNESIUM 2.4 MG/DL (1.5-2.4); PHOSPHORUS 3.5 MG/DL (2.3-4.5); POTASSIUM 3.6 MMOL/L (3.5-5.1)
--- NOTE | 2022-01-23 06:46 | NUR ---
Problems reprioritized. Patient report given, questions answered & plan of care reviewed with JOSSE RODRIGUEZ. Addendum: 01/23/22 at 0647 by Radha Rosa RN Amended: Links added.
[2022-01-23 07:40] LABS: BASOPHILS % (AUTO) 0.1 % (0-1); EOSINOPHILS # (AUTO) 0.2 X10'3 (0-0.9); EOSINOPHILS % (AUTO) 1.6 % (0-6); HEMOGLOBIN 7.2 g/dl (14.0-17.9); LYMPHOCYTES # (AUTO) 0.8 X10'3 (1.1-4.8); LYMPHOCYTES % (AUTO) 6.8 % (21-51); MEAN CORPUSCULAR HEMOGLOBIN 29.8 PG (27.0-31.0); MEAN CORPUSCULAR HGB CONC 33.7 g/dL (33.0-36.5); MEAN CORPUSCULAR VOLUME 88.4 FL (78-98); MEAN PLATELET VOLUME 8.6 FL (7.4-10.4); MONOCYTES # (AUTO) 1.2 X10'3 (0-0.9); MONOCYTES % (AUTO) 9.8 % (2-12); NEUTROPHILS # (AUTO) 9.6 X10'3 (1.8-7.7); NEUTROPHILS % (AUTO) 81.7 % (42-75); PLATELET COUNT 148 X10'3 (140-440); RED BLOOD COUNT 2.43 X10'6 (4.70-6.10); RED CELL DISTRIBUTION WIDTH 15.5 % (11.5-14.5); WHITE BLOOD COUNT 11.8 X10'3 (4.5-11.0)
[2022-01-23 07:43] LABS: HEMATOCRIT 21.5 % (42.0-52.0)
[2022-01-23] MEDS: sennosides/docusate sodium tablet PO SCH ×2 (08:00→19:50)
--- NOTE | 2022-01-23 09:01 | NUR ---
Initial: Pt s/p aortic root replacement this admit per EMR. Currently on No Concentrated Sweets diet w/ avg intake 52% of meals partially meeting needs. Pt could benefit from Danial [employer] BID to assist w/ wound healing. LBM 01/21 receiving routine and PRN bowel care. Written High protein diet ed w/ RD contact info placed in pt chart. Will continue to monitor. Recs: 1. Continue NCS diet as tolerated 2. Danial Smoothies BIDBD; pending MD verification 3. Bowel care per rx 4. Scaled wts Addendum: 01/23/22 at [address] Amended: Links added.
[2022-01-23] MEDS: potassium Cl 20 mEq SR tablet PO PRN ×3 (09:18→19:51)
[2022-01-23] MEDS: pantoprazole 40mg Tablet.DR PO SCH (09:18)
[2022-01-23] MEDS: furosemide 40mg/4ml inj IV SCH (09:18)
[2022-01-23] MEDS: allopurinol 300 MG tablet PO SCH (09:19)
[2022-01-23] MEDS: aspirin 81mg tab.chew PO SCH (09:19)
[2022-01-23] MEDS: ESCITALOPRAM OXALATE 5 MG TABLET PO SCH (09:19)
[2022-01-23] MEDS: metoprolol tartrate 12.5mg (1/2 tablet) PO SCH ×2 (09:19→19:33)
[2022-01-23 11:00] VITALS: BP 115/64
[2022-01-23] MEDS ORDERED: ferrous gluconate 324mg tablet PO SCH ×2 (12:35→20:00)
[2022-01-23] MEDS: folic acid 1mg tablet PO SCH (12:52)
[2022-01-23 14:55] VITALS: BP 119/62
[2022-01-23 18:00] VITALS: BP 143/72
--- NOTE | 2022-01-23 18:28 | NUR ---
Patient in room U 3022. I have received report from JOSSE RODRIGUEZ and had the opportunity to ask questions and assume patient care. Addendum: 01/23/22 at 1828 by Radha Rosa RN Amended: Links added.
[2022-01-23] MEDS: ferrous gluconate 324mg tablet PO SCH (19:33)
[2022-01-23] MEDS: atorvastatin 10mg tablet PO SCH (19:51)
[2022-01-23 22:00] VITALS: BP 131/67
[2022-01-24 02:00] VITALS: BP 144/72
--- NOTE | 2022-01-24 02:15 | NUR ---
pt awoke medicated for pain with iv toradol. pain 4-5/-. pt using IS and flutter valve with encouragement besides on his own. amb to brp to void. no bm so far this am.
[2022-01-24] MEDS: ketorolac trometh. 30mg/ml inj. IV PRN ×3 (02:20→16:47)
--- NOTE | 2022-01-24 04:32 | NUR ---
APPEARS COMFORTABLE RESTING WITHOUT CHANGES
--- NOTE | 2022-01-24 06:22 | NUR ---
Problems reprioritized. Patient report given, questions answered & plan of care reviewed with JOSSE RODRIGUEZ&JOSSE DANIELS. Addendum: 01/24/22 at 0623 by Radha Rosa RN Amended: Links added.
[2022-01-24 06:42] LABS: MAGNESIUM 2.2 MG/DL (1.5-2.4); PHOSPHORUS 3.9 MG/DL (2.3-4.5); POTASSIUM 4.1 MMOL/L (3.5-5.1)
--- NOTE | 2022-01-24 06:58 | NUR ---
Patient in room PCU 3022. I have received report from Radha LOAIZA and had the opportunity to ask questions and assume patient care.
[2022-01-24 06:59] VITALS: BP 144/72
[2022-01-24] MEDS: pantoprazole 40mg Tablet.DR PO SCH (08:27)
[2022-01-24] MEDS: folic acid 1mg tablet PO SCH (08:28)
[2022-01-24] MEDS: sennosides/docusate sodium tablet PO SCH ×2 (08:28→20:25)
[2022-01-24] MEDS: aspirin 81mg tab.chew PO SCH (08:28)
[2022-01-24] MEDS: allopurinol 300 MG tablet PO SCH (08:28)
[2022-01-24] MEDS: ferrous gluconate 324mg tablet PO SCH ×2 (08:28→20:25)
[2022-01-24] MEDS: ESCITALOPRAM OXALATE 5 MG TABLET PO SCH (08:29)
[2022-01-24] MEDS: metoprolol tartrate 12.5mg (1/2 tablet) PO SCH (08:30)
[2022-01-24] MEDS: furosemide 40mg/4ml inj IV SCH ×2 (08:30→08:35)
[2022-01-24 09:55] LABS: BASOPHILS % (AUTO) 0.1 % (0-1); EOSINOPHILS # (AUTO) 0.3 X10'3 (0-0.9); EOSINOPHILS % (AUTO) 2.5 % (0-6); HEMATOCRIT 24.2 % (42.0-52.0); HEMOGLOBIN 8.1 g/dl (14.0-17.9); LYMPHOCYTES # (AUTO) 0.9 X10'3 (1.1-4.8); LYMPHOCYTES % (AUTO) 7.4 % (21-51); MEAN CORPUSCULAR HEMOGLOBIN 29.3 PG (27.0-31.0); MEAN CORPUSCULAR HGB CONC 33.4 g/dL (33.0-36.5); MEAN CORPUSCULAR VOLUME 87.7 FL (78-98); MEAN PLATELET VOLUME 7.8 FL (7.4-10.4); MONOCYTES # (AUTO) 0.8 X10'3 (0-0.9); MONOCYTES % (AUTO) 6.7 % (2-12); NEUTROPHILS # (AUTO) 9.7 X10'3 (1.8-7.7); NEUTROPHILS % (AUTO) 83.3 % (42-75); PLATELET COUNT 260 X10'3 (140-440); RED BLOOD COUNT 2.76 X10'6 (4.70-6.10); RED CELL DISTRIBUTION WIDTH 15.6 % (11.5-14.5); WHITE BLOOD COUNT 11.6 X10'3 (4.5-11.0)
[2022-01-24 11:00] VITALS: BP 125/75
[2022-01-24] MEDS: potassium Cl 20 mEq SR tablet PO PRN (11:42)
[2022-01-24 15:00] VITALS: BP 148/63
--- NOTE | 2022-01-24 18:23 | NUR ---
Problems reprioritized. Patient report given, questions answered & plan of care reviewed with Brandon LOAIZA.
--- NOTE | 2022-01-24 18:25 | NUR ---
[place] documentation: I have reviewed and agree with all interventions, assessments performed and documented by JOSSE Cannon.
[2022-01-24 18:50] VITALS: BP 136/76
[2022-01-24] MEDS: metoprolol tartrate 25mg tablet PO SCH (20:25)
[2022-01-24] MEDS: atorvastatin 10mg tablet PO SCH (20:25)
[2022-01-24 22:00] VITALS: BP 131/74
[2022-01-25 06:00] VITALS: BP 136/73
[2022-01-25] MEDS: ketorolac trometh. 30mg/ml inj. IV PRN (06:08)
--- NOTE | 2022-01-25 06:58 | NUR ---
Patient in room PCU 3022. I have received report from JOSSE LEE, and had the opportunity to ask questions and assume patient care.
[2022-01-25 07:03] LABS: BASOPHILS % (AUTO) 0.1 % (0-1); EOSINOPHILS # (AUTO) 0.5 X10'3 (0-0.9); HEMATOCRIT 22.5 % (42.0-52.0); HEMOGLOBIN 7.6 g/dl (14.0-17.9); LYMPHOCYTES # (AUTO) 1.4 X10'3 (1.1-4.8); LYMPHOCYTES % (AUTO) 11.2 % (21-51); MEAN CORPUSCULAR HEMOGLOBIN 29.7 PG (27.0-31.0); MEAN CORPUSCULAR HGB CONC 33.9 g/dL (33.0-36.5); MEAN CORPUSCULAR VOLUME 87.7 FL (78-98); MEAN PLATELET VOLUME 7.4 FL (7.4-10.4); MONOCYTES # (AUTO) 1.3 X10'3 (0-0.9); MONOCYTES % (AUTO) 10.7 % (2-12); NEUTROPHILS # (AUTO) 9.1 X10'3 (1.8-7.7); PLATELET COUNT 301 X10'3 (140-440); RED BLOOD COUNT 2.57 X10'6 (4.70-6.10); RED CELL DISTRIBUTION WIDTH 15.5 % (11.5-14.5); WHITE BLOOD COUNT 12.3 X10'3 (4.5-11.0)
--- NOTE | 2022-01-25 07:03 | NUR ---
Problems reprioritized. Patient report given, questions answered & plan of care reviewed with JOVANI. Addendum: 01/25/22 at 0704 by Claus Dumont RN Amended: Links added.
[2022-01-25 07:28] LABS: ALBUMIN 2.9 G/DL (3.4-5.0); ANION GAP 10 (8-16); BLOOD UREA NITROGEN 15 MG/DL (7-18); BUN/CREATININE RATIO 17.2 (5.4-32.0); CALCIUM 8.1 MG/DL (8.5-10.1); CHLORIDE 100 MMOL/L (99-107); CREATININE 0.87 MG/DL (0.60-1.10); GLUCOSE 113 MG/DL (70-104); MAGNESIUM 2.1 MG/DL (1.5-2.4); PHOSPHORUS 4.2 MG/DL (2.3-4.5); POTASSIUM 3.9 MMOL/L (3.5-5.1); SODIUM 138 MMOL/L (135-145); TOTAL CARBON DIOXIDE 28.4 MMOL/L (24-32); eGFR 89 ML/MIN
[2022-01-25] MEDS: potassium Cl 20 mEq SR tablet PO PRN (08:10)
[2022-01-25] MEDS: ferrous gluconate 324mg tablet PO SCH (08:10)
[2022-01-25] MEDS: aspirin 81mg tab.chew PO SCH (08:11)
[2022-01-25] MEDS: folic acid 1mg tablet PO SCH (08:11)
[2022-01-25] MEDS: sennosides/docusate sodium tablet PO SCH (08:12)
[2022-01-25] MEDS: ESCITALOPRAM OXALATE 5 MG TABLET PO SCH (08:12)
[2022-01-25] MEDS: metoprolol tartrate 25mg tablet PO SCH (08:12)
[2022-01-25] MEDS: allopurinol 300 MG tablet PO SCH (08:13)
[2022-01-25] MEDS: pantoprazole 40mg Tablet.DR PO SCH (08:13)
[2022-01-25 11:00] VITALS: BP 143/76
[2022-01-25] MEDS ORDERED: ASPI81TA53 PO (14:18)
[2022-01-25] MEDS ORDERED: PANT40TA54 PO (14:18)
[2022-01-25] MEDS ORDERED: FERR324T3 PO (14:18)
[2022-01-25] MEDS ORDERED: FOLI1TAB27 PO (14:18)
[2022-01-25] MEDS ORDERED: LOP25T PO (14:18)
--- NOTE | 2022-01-25 15:15 | NUR ---
PT STABLE FOR DISCHARGE PER MD. DISCHARGE AND FOLLOW UP INSTRUCTIONS REVIEWED WITH PT AND . APPROPRIATE PAPER WORK SIGNED. TELE BOX REMOVED. PIV REMOVED WITH TIP INTACT. BELONGINGS REVIEWED WITH PT. PT WAS ACCOMPANIED TO PRIVATE VEHICLE BY HOSPITAL STAFF. PT WAS DISCHARGED TO HOME.
[2022-01-26] MEDS ORDERED: TRAM50TA2 PO (13:12)
== END 2022-01-25 15:15 | disposition home or self-care (01) | DRG 220 ==
LOC: PAS IN 05:22 → CICU 2S 12:09 → PCU 3S 01-20 21:30
PROVIDERS: ADMIT Thoracic Surgery (Cardiothoracic Vascular Surgery); ATTEND Thoracic Surgery (Cardiothoracic Vascular Surgery)
PROC: 02RX08Z Replacement of Thoracic Aorta, Ascending/Arch with Zooplastic Tissue, Open Approach (ICD-10-PCS; 2022-01-18)
PROC: 5A1221Z Performance of Cardiac Output, Continuous (ICD-10-PCS; 2022-01-18)
PROC: B24BZZ4 Ultrasonography of Heart with Aorta, Transesophageal (ICD-10-PCS; 2022-01-18)
PROC: 02RF08Z Replacement of Aortic Valve with Zooplastic Tissue, Open Approach (ICD-10-PCS; principal; 2022-01-18 07:21)
DX: I35.1 Nonrheumatic aortic (valve) insufficiency (principal); D62 Acute posthemorrhagic anemia; D69.6 Thrombocytopenia, unspecified; I71.2 Thoracic aortic aneurysm, without rupture; E78.5 Hyperlipidemia, unspecified; I10 Essential (primary) hypertension; M10.9 Gout, unspecified; R50.9 Fever, unspecified; Z79.899 Other long term (current) drug therapy
CPT/HCPCS: 93312; 93325; Z7506; Z7508; 36415; 36600; 71045; 71046; 80048; 80053; 81003; 82330; 82435; 82803; 82947; 82948; 83036; 83735; 84100; 84132; 84295; 85018; 85025; 85347; 85384; 85610; 85730; 86885; 86900; 86901; 86920; 87081; 87811; 93005; 94002; 94010; 94760; 97110; 97116; 97162; 97530; A4333; A4338; A4615; A4618; A6258; A6402; A6449; A7000; A7048; C1751; C1768; G0378; J0131; J0171; J0690; J1265; J1644; J1815; J1885; J1940; J2060; J2250; J2270; J2370; J2405; J2720; J2930; J3370; J3475; J3480; J3490; J7030; J7040; J7050; J7060; J7120; P9045; P9047

== ENCOUNTER 2022-01-29 14:32 | Emergency (ER) | payer BC ==
[~2022-01-29] VITALS: Ht 167.6 cm; Wt 75.0 kg
[~2022-01-29 14:32] MED LIST changes: -AMLO5TAB16 PO; +ASPI81TA53 PO; -BENA40TA72 PO; +FERR324T3 PO; +FOLI1TAB27 PO; +LOP25T PO; -LOVA20TA2 PO; -METO-411 PO; +PANT40TA54 PO; +TRAM50TA2 PO; -ringers solution, lacted 1,000 ML IV SCH
[2022-01-29 16:27] VITALS: BP 103/59
== END 2022-01-29 16:30 | disposition home or self-care (01) ==
LOC: ER 14:33
DX: M71.22 Synovial cyst of popliteal space [Baker], left knee (principal); I10 Essential (primary) hypertension; J45.909 Unspecified asthma, uncomplicated; Z86.14 Personal history of Methicillin resistant Staphylococcus aureus infection; Z79.899 Other long term (current) drug therapy; Z79.82 Long term (current) use of aspirin
CPT/HCPCS: 93971; 99284